=== PATIENT | male | born 1995 | race Caucasian/White ===

== ENCOUNTER 2016-08-29 03:06 | Emergency (ER) | payer OTHER, BC ==
[~2016-08-29] VITALS: Ht 182.9 cm; Wt 79.5 kg
[2016-08-29 03:15] VITALS: TEMP 97.5
[2016-08-29 08:08] VITALS: BP 110/35; PULSE 114
== END 2016-08-29 08:08 | disposition home or self-care (01) ==
LOC: COL.ER 03:06
DX: S09.90XA Unspecified injury of head, initial encounter (principal); S05.11XA Contusion of eyeball and orbital tissues, right eye, initial encounter; F10.120 Alcohol abuse with intoxication, uncomplicated; Y90.9 Presence of alcohol in blood, level not specified

== ENCOUNTER 2017-10-29 16:01 | Emergency (ER) | payer OTHER, BC ==
[~2017-10-29] VITALS: Ht 182.9 cm; Wt 77.3 kg
[2017-10-29 16:05] VITALS: TEMP 97.5
[2017-10-29 17:15] VITALS: BP 138/87; PULSE 97
== END 2017-10-29 17:13 | disposition home or self-care (01) ==
LOC: COL.ER 16:01
DX: S09.90XA Unspecified injury of head, initial encounter (principal); S01.01XA Laceration without foreign body of scalp, initial encounter; Y04.2XXA Assault by strike against or bumped into by another person, initial encounter; Y92.009 Unspecified place in unspecified non-institutional (private) residence as the place of occurrence of the external cause